=== PATIENT | female | born 1970 | race Caucasian/White ===

== ENCOUNTER 2017-03-13 20:32 | Emergency (ER) | payer BC ==
[~2017-03-13] VITALS: Ht 167.6 cm; Wt 70.0 kg
[2017-03-13] MEDS ORDERED: SODIUM CHLORIDE 0.9% 1,000 ML IV ONE (20:43)
[2017-03-13] MEDS ORDERED: GLUC1TAB35 PO (20:46)
[2017-03-13] MEDS ORDERED: NAPR500T3 PO (20:46)
[2017-03-13] MEDS ORDERED: VIT500LI PO (20:48)
[2017-03-13] MEDS ORDERED: SODIUM CHLORIDE FLUSH 10ML SYR IVF ONE (21:00)
[2017-03-13 21:08] LABS: HEMATOCRIT 40.1 % (34.6-47.8); HEMOGLOBIN 13.5 g/dL (11.7-16.4); WHITE BLOOD COUNT 13.8 x10^3/uL (3.4-10)
[2017-03-13 21:21] LABS: ASPARTATE AMINO TRANSFERASE 13 U/L (15-37); BLOOD UREA NITROGEN 19 mg/dL (7-18)
[2017-03-13] MEDS ORDERED: HYDROmorphone 1 MG/ML, 1ML IVPush PRN (21:30)
[2017-03-13] MEDS ORDERED: ONDANSETRON 2MG/ML, 2ML IVPush ONE (21:30)
[2017-03-13] MEDS ORDERED: SODIUM CHLORIDE 0.9% 1,000ML IVBOLUS ONE (21:30)
[2017-03-13] MEDS ORDERED: KETOROLAC 30 MG/1 ML IVPush ONE (21:30)
[2017-03-13] MEDS ORDERED: HYDROmorphone 1 MG/ML, 1ML ONE (22:04)
[2017-03-13] MEDS ORDERED: ONDANSETRON 2MG/ML, 2ML ONE (22:04)
[2017-03-13] MEDS ORDERED: KETOROLAC 30 MG/1 ML ONE (22:04)
[2017-03-13] MEDS ORDERED: OMNIPAQUE 350 MG/ML, 100ML BOTTLE ONE (22:11)
[2017-03-13] MEDS ORDERED: LACT1CAP11 PO (22:28)
[2017-03-13] MEDS ORDERED: OMEG-76 PO (22:28)
[2017-03-13] MEDS ORDERED: AZIT500T PO (22:28)
[2017-03-13] MEDS ORDERED: ACYC-114 PO (22:28)
[2017-03-14 00:05] VITALS: BP 107/79
== END 2017-03-14 00:07 | disposition home or self-care (01) ==
LOC: ED 23:26
DX: N20.1 Calculus of ureter (principal)
CPT/HCPCS: 36415; 74177; 80053; 81003; 83690; 84703; 85025; 96361; 96374; 96375; 99285; J1170; J1885; J2405; J7030; Q9967

== ENCOUNTER 2020-01-29 10:19 | Emergency (ER) | payer BC ==
[~2020-01-29] VITALS: Ht 167.6 cm; Wt 67.3 kg
[~2020-01-29 10:19] MED LIST: ACYC-114 PO; AZIT500T PO; GLUC1TAB35 PO; LACT1CAP11 PO; NAPR-685 PO; OMEG-76 PO; VIT500LI PO
--- NOTE | 2020-01-29 10:41 | NUR ---
PT CAME IN CO OF HEART PALPITATIONS. SAYS HER CHEST DOESNT NECESSARLIY HAVE PAIN BUT "IT FEELS LIKE THERES A FLUTTER AND IT DOESNT FEEL RIGHT". PT STATES SHE "HAS HAD AFIB BEFORE AND THEY DID A SURGERY TO CORRECT IT". PT IS CONNECGTED TO RESOURCE ANALYST AND BLANKET HAS BEEN PROVIDED. EKG COMPLETE.
[2020-01-29 11:06] LABS: BASOPHILS # (AUTO) 0.03 x10^3/uL (0-0.1); BASOPHILS % (AUTO) 0 % (0-1); EOSINOPHILS # (AUTO) 0.01 x10^3/uL (0-0.4); EOSINOPHILS % (AUTO) 0 % (1-7); LYMPHOCYTES # (AUTO) 2.52 x10^3/uL (1-3.4); LYMPHOCYTES % (AUTO) 28 % (22-44); MD NO; MEAN CORPUSCULAR HEMOGLOBIN 31.1 pg (27.0-34.8); MEAN CORPUSCULAR HGB CONC 33.7 g/dL (32.4-35.8); MEAN CORPUSCULAR VOLUME 92.3 fL (80-100); MEAN PLATELET VOLUME 7.9 fL (7.4-10.4); MONOCYTES # (AUTO) 0.75 x10^3/uL (0.2-0.8); MONOCYTES % (AUTO) 8 % (2-9); NEUTROPHILS # (AUTO) 5.75 x10^3/uL (1.8-6.8); NEUTROPHILS % (AUTO) 64 % (42-75); PLATELET COUNT 328 x10^3/uL (130-400); RED BLOOD COUNT 4.89 x10^6/uL (3.82-5.3); RED CELL DISTRIBUTION WIDTH 12.8 % (9.6-15.2)
[2020-01-29 11:18] LABS: ALBUMIN 3.7 g/dL (3.4-5.0); ANION GAP 8 mmol/L (5-15); CALCIUM 9.8 mg/dL (8.5-10.1); CHLORIDE 109 mmol/L (98-107); CREATININE 0.78 mg/dL (0.55-1.02)
[2020-01-29 11:22] LABS: TROPONIN I < 0.015 ng/mL (0.000-0.045)
[2020-01-29] MEDS ORDERED: POTASSIUM CHLORIDE 20 MEQ TAB.ER.PRT ONE (11:50)
[2020-01-29 11:53] VITALS: BP 114/66
[2020-01-29] MEDS ORDERED: POTASSIUM CHLORIDE 20 MEQ TAB.ER.PRT PO ONE (12:00)
== END 2020-01-29 12:10 | disposition home or self-care (01) ==
LOC: ED 11:17
DX: R00.2 Palpitations (principal); I44.7 Left bundle-branch block, unspecified; I48.91 Unspecified atrial fibrillation
CPT/HCPCS: 36415; 71045; 80048; 82040; 84484; 85025; 85379; 93005; 99285